=== PATIENT | male | born 1990 | race Caucasian/White ===

== ENCOUNTER 2017-10-16 | Emergency (ER) | payer BC ==
--- NOTE | 2017-10-16 01:41 | ER ---
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 Transition of care: patient was not received from another setting of care. Onset of symptoms was October 15, 2017 at 23:45. Care prior to arrival: None. 00:20 Method Of Arrival: Wheelchair lp1 00:20 Acuity: AALIYAH 3 lp1 Triage Assessment: 00:23 General: Appears in no apparent distress. Behavior is calm, cooperative, appropriate lp1 for age. Pain: Denies pain. Respiratory: Airway is patent Trachea midline Respiratory effort is even, unlabored, Respiratory pattern is regular. 00:31 Respiratory: Onset: The symptoms/episode began/occurred about 30 minutes prior to kr2 arrival. Respiratory: Breath sounds are clear bilaterally. Respiratory: Reports shortness of breath the patient reports symptoms have resolved. Historical: - Allergies: 00:23 No Known Allergies; lp1 - Home Meds: 00:23 None [Active]; lp1 - PMHx: 00:23 None; lp1 - PSHx: 00:23 Torsion; lp1 - Immunization history:: Adult Immunizations up to date. - Social history:: Smoking status: Patient/guardian denies using tobacco. Screenin:23 Abuse screen: Denies threats or abuse. Denies injuries from another. Nutritional lp1 screening: No deficits noted. Tuberculosis screening: No symptoms or risk factors identified. Fall Risk None identified. Assessment: 00:27 General: Appears in no apparent distress. comfortable, slender, well groomed, well kr2 developed, well nourished, Behavior is calm, cooperative, appropriate for age. Pain: Denies pain. Neuro: Level of Consciousness is awake, alert, obeys commands, Oriented to person, place, time, situation, Appropriate for age. Cardiovascular: Capillary refill < 3 seconds in bilateral fingers Patient's skin is warm and dry. Rhythm is regular. Respiratory: Airway is patent Respiratory effort is even, unlabored, Respiratory pattern is regular, symmetrical, Breath sounds are clear bilaterally. the patient reports symptoms have resolved. Respiratory: Reports shortness of breath while taking a shower, symptoms came on suddenly and resolved. States he has had episodes of shortness of breath before but not to this degree. Tonight he felt "more out of sorts, clammy and now has a very dry mouth.". GI: Abdomen is flat, non-distended. : No signs and/or symptoms were reported regarding the genitourinary system. Denies burning with urination. EENT: Nares are clear bilaterally Oral mucosa is dry. Derm: Skin is intact, is healthy with good turgor, Skin is pink, warm \\T\\ dry. Musculoskeletal: Circulation, motion, and sensation intact. Vital Signs: 00:22 BP 154 / 89; Pulse 80; Resp 18; Temp 98.7(O); Pulse Ox 99% on R/A; Weight 117.93 kg; lp1 Height 6 ft. 8 in. (203.20 cm); Pain 0/10; 01:48 BP 120 / 75; Pulse 62; Resp 16; Pulse Ox 100% on R/A; rk2 00:22 Body Mass Index 28.56 (117.93 kg, 203.20 cm) lp1 ED Course: 00:05 Patient arrived in ED. al2 00:22 Triage completed. lp1 00:22 Haydee Conley, ELVIN is Primary Nurse. kr2 00:23 Arm band placed on. lp1 00:25 Ba Sellers MD is Attending Physician. gs 00:32 Patient has correct armband on for positive identification. Bed in low position. Call kr2 light in reach. Side rails up X 1. Adult w/ patient. Pulse ox on. NIBP on. Door closed. Verbal reassurance given. Head of bed elevated. 01:00 EKG done, by ED staff, reviewed by Ba Sellers MD. kr2 01:02 Patient moved to radiology via wheelchair. kw 01:02 X-ray completed. Patient tolerated procedure well. kw 01:02 Patient moved back from radiology. kw 01:48 No provider procedures requiring assistance completed. Patient did not have IV access rk2 during this emergency room visit. Administered Medications: No medications were administered Outcome: 01:40 Discharge ordered by MD. gs 01:48 Discharged to home ambulatory. rk2 01:48 Condition: good 01:48 Discharge instructions given to patient. 01:49 Patient left the ED. rk2 Signatures: Misa Nina Laura, RN RN lp1 Ba Sellers MD MD gs Reaves, Karey, RN RN kr2 Annamaria Reagan Rhonda, RN RN rk2
--- NOTE | 2017-10-16 01:41 | EDPHYS ---
Physician Documentation [facility] Name: Collin Ford Age: 27 yrs Sex: Male : 1990 Arrival Date: 10/16/2017 Time: 00:05 Bed 24 Private MD: ED Physician Ba Sellers HPI: 10/16 01:35 This 27 yrs old Male presents to ER via Wheelchair with complaints of gs Shortness Of Breath. 01:35 The patient has shortness of breath that woke him/her from sleep. Onset: The gs symptoms/episode began/occurred acutely, this morning, today. Duration: The symptoms are continuous, but are markedly better than the original presentation, resolved. The patient's shortness of breath has no apparent modifying factors. Associated signs and symptoms: Pertinent negatives: chest pain, non-productive cough. Severity of symptoms: At their worst the symptoms were moderate in the emergency department the symptoms have resolved. The patient has experienced similar episodes in the past, a few times. The patient has not recently seen a physician. Historical: - Allergies: 00:23 No Known Allergies; lp1 - Home Meds: 00:23 None [Active]; lp1 - PMHx: 00:23 None; lp1 - PSHx: 00:23 Torsion; lp1 - Immunization history:: Adult Immunizations up to date. - Social history:: Smoking status: Patient/guardian denies using tobacco. ROS: 01:35 Cardiovascular: Negative for chest pain. gs 01:35 All other systems are negative. Exam: 01:35 Head/Face: Normocephalic, atraumatic. Eyes: Pupils equal round and reactive to light, gs extra-ocular motions intact. Lids and lashes normal. Conjunctiva and sclera are non-icteric and not injected. Cornea within normal limits. Periorbital areas with no swelling, redness, or edema. ENT: Nares patent. No nasal discharge, no septal abnormalities noted. Tympanic membranes are normal and external auditory canals are clear. Oropharynx with no redness, swelling, or masses, exudates, or evidence of obstruction, uvula midline. Mucous membranes moist. Neck: Trachea midline, no thyromegaly or masses palpated, and no cervical lymphadenopathy. Supple, full range of motion without nuchal rigidity, or vertebral point tenderness. No Meningismus. Chest/axilla: Normal chest wall appearance and motion. Nontender with no deformity. No lesions are appreciated. Cardiovascular: Regular rate and rhythm with a normal S1 and S2. No gallops, murmurs, or rubs. Normal PMI, no JVD. No pulse deficits. Respiratory: Lungs have equal breath sounds bilaterally, clear to auscultation and percussion. No rales, rhonchi or wheezes noted. No increased work of breathing, no retractions or nasal flaring. Abdomen/GI: Soft, non-tender, with normal bowel sounds. No distension or tympany. No guarding or rebound. No evidence of tenderness throughout. Back: No spinal tenderness. No costovertebral tenderness. Full range of motion. Skin: Warm, dry with normal turgor. Normal color with no rashes, no lesions, and no evidence of cellulitis. MS/ Extremity: Pulses equal, no cyanosis. Neurovascular intact. Full, normal range of motion. Neuro: Awake and alert, GCS 15, oriented to person, place, time, and situation. Cranial nerves II-XII grossly intact. Motor strength 5/5 in all extremities. Sensory grossly intact. Cerebellar exam normal. Normal gait. 01:35 Constitutional: The patient appears in no acute distress, alert, awake. 01:35 ECG was reviewed by the Attending Physician. Vital Signs: 00:22 BP 154 / 89; Pulse 80; Resp 18; Temp 98.7(O); Pulse Ox 99% on R/A; Weight 117.93 kg; lp1 Height 6 ft. 8 in. (203.20 cm); Pain 0/10; 01:48 BP 120 / 75; Pulse 62; Resp 16; Pulse Ox 100% on R/A; rk2 00:22 Body Mass Index 28.56 (117.93 kg, 203.20 cm) lp1 MDM: 00:39 Patient medically screened. gs 01:35 Differential diagnosis: Anxiety Reaction sleep apnea, dyspnea, ptx. Immunization gs status:. Data reviewed: vital signs, nurses notes, and as a result, I will discharge patient. Response to treatment: the patient's symptoms have resolved after treatment. 01:35 Counseling: I had a detailed discussion with the patient and/or guardian regarding: the gs presence of at least one elevated blood pressure reading (>120/80) during this emergency department visit. Special discussion: I have referred the patient to see his PCP for further evaluation of high blood pressure. 03 00:46 Order name: XRAY Chest Pa And Lat (2 Views) gs 03 00:46 Order name: EKG - Nurse/Tech; Complete Time: 00:58 gs EC:35 Rate is 56 beats/min. Rhythm is regular. PA interval is normal. QRS interval is normal. gs QT interval is prolonged. T waves are Normal. No ST changes noted. Clinical impression: Abnormal EKG without significant change. Interpreted by me. Administered Medications: No medications were administered Disposition: 10/16/17 01:40 Discharged to Home. Impression: Dyspnea, Essential (primary) hypertension. - Condition is Stable. - Discharge Instructions: Hypertension, Shortness of Breath, [id number], Managing Your High Blood Pressure. - Medication Reconciliation Form, Thank You Letter, Antibiotic Education, Prescription Opioid Use form. - Follow up: Private Physician; When: 2 - 3 days; Reason: Re-evaluation by your physician. Signatures: Dispatcher [employer] Meagan Rausch, RN RN lp1 Ba Sellers MD MD Kacie Garza RN RN rk2
--- NOTE | 2017-10-16 06:54 | RAD REPORT ---
EXAM DESCRIPTION: RAD - Chest Pa And Lat (2 Views) - 10/16/2017 1:05 am CLINICAL HISTORY: Shortness of breath COMPARISON: None. TECHNIQUE: PA and lateral views of the chest were obtained. FINDINGS: The lungs are clear. Heart size is normal and central vasculature is within normal limit s. No pleural effusion or pneumothorax seen. No acute bony finding noted. No aortic abnormality. IMPRESSION: No acute cardiopulmonary process.
--- NOTE | 2017-10-16 07:32 | EKG ---
Test Date: 2017-10-16 Test Time: 00:56:51 Business Administrator: DREA MEASUREMENT RESULTS: Intervals: Rate: 56 SC: 148 QRSD: 110 QT: 400 QTc: 386 [place]: P: 30 SC: 148 QRS: 20 T: 21 INTERPRETIVE STATEMENTS: Sinus bradycardia with marked sinus arrhythmia Otherwise normal ECG Compared to ECG 02/21/2007 08:46:33 No significant changes Electronically Signed On 10-16-17 07:31:55 CDT by Frank Rodriguez
== END 2017-10-16 01:49 | disposition home or self-care (01) ==
LOC: ER
DX: I10 Essential (primary) hypertension (principal)
CPT/HCPCS: 71046; 93005; 99284